=== PATIENT | female | born 1950 | race Caucasian/White ===

== ENCOUNTER 2017-09-09 21:22 | Inpatient (IN) | payer MEDICARE, MEDICAID ==
[~2017-09-09] VITALS: Ht 175.3 cm; Wt 87.3 kg
[2017-09-09 21:40] LABS: BASOPHILS # (AUTO) 0.03 K/uL (0.00-0.20); BASOPHILS % (AUTO) 0.3 % (0.0-2.0); EOSINOPHILS # (AUTO) 0.05 K/uL (0.00-0.70); EOSINOPHILS % (AUTO) 0.47 % (1.0-6.0); HEMATOCRIT 42.7 % (36-46); HEMOGLOBIN 14.3 g/dL (12.0-16.0); LYMPHOCYTES # (AUTO) 1.9 K/uL (1.0-4.8); LYMPHOCYTES % (AUTO) 19.7 % (22.0-44.0); MEAN CORPUSCULAR HGB CONC 33.4 G/dL (31.0-37.0); MEAN CORPUSCULAR VOLUME 87 fL (80-100); MONOCYTES # (AUTO) 0.3 K/uL (0.1-1.0); MONOCYTES % (AUTO) 3.2 % (2.0-9.0); NEUTROPHILS # (AUTO) 7.5 K/uL (1.8-7.7); NEUTROPHILS % (AUTO) 76.4 % (40.0-70.0); PLATELET COUNT (AUTO) 260 K/uL (150-450); RED BLOOD CELL COUNT(AUTO) 4.91 MIL/uL (4.00-5.20); RED CELL DISTRIBUTION WIDTH 13.7 % (11.5-14.5); WHITE BLOOD COUNT (AUTO) 9.8 K/uL (4.5-11.0)
[2017-09-09 21:49] LABS: ANION GAP 12 mmol/L (8-16); CALCIUM, TOTAL 9.7 mg/dL (8.8-10.5); CARBON DIOXIDE 25 mmol/L (22-29); CHLORIDE 104 mmol/L (98-107); CREATININE 0.97 mg/dL (0.60-1.30); GLOMERULAR FILTR. RATE CALC 57 mL/min (>60); POTASSIUM 4.1 mmol/L (3.5-5.1); SODIUM SERUM 141 mmol/L (136-145); UREA NITROGEN, BLOOD 14 mg/dL (7-18)
[2017-09-09 21:55] LABS: ALANINE AMINOTRANSFERASE 46 U/L (12-78); ALBUMIN 3.6 g/dL (3.4-5.0); ASPARTATE AMINOTRANSFERASE 26 U/L (15-37); BILIRUBIN,TOTAL 0.4 mg/dL (0.1-1.0); TOTAL PROTEIN, SERUM 7.5 g/dL (6.4-8.2)
[2017-09-10 00:56] LABS: APPEARANCE,URINE CLEAR (CLEAR); GLUCOSE, URINE (UA) NEGATIVE (NEGATIVE); KETONES,URINE NEGATIVE (NEGATIVE); LEUKOCYTE ESTERASE ,URINE TRACE (NEGATIVE); OCCULT BLOOD,URINE NEGATIVE (NEGATIVE); PROTEIN,URINE NEGATIVE (NEGATIVE)
[2017-09-10 00:57] LABS: ADD UA MICROSCOPIC YES
[2017-09-10 01:14] LABS: RBC,URINE 0-2 /HPF (0-2); SQUAMOUS EPITHELIAL CELL,UR Rare /LPF (None Seen)
[2017-09-10 01:35] VITALS: BP 149/97
[2017-09-10] MEDS ORDERED: LORazepam 2 MG TABLET PO PRN (03:30)
[2017-09-10] MEDS ORDERED: HALOPERIDOL 5 MG TABLET PO PRN (03:30)
[2017-09-10] MEDS ORDERED: ZOLPIDEM TARTRATE 10 MG TABLET PO PRN (03:30)
[2017-09-10 09:30] VITALS: BP 135/82
[2017-09-10] MEDS ORDERED: MAGNESIUM HYDROXIDE SUSPENSION 30 ML UDCUP PO PRN (12:30)
[2017-09-10] MEDS ORDERED: BACITRACIN 28.4 GM OINTMENT TP PRN (12:30)
[2017-09-10] MEDS ORDERED: PETROLATUM,WHITE 71 GM JELLY TP PRN (12:30)
[2017-09-10] MEDS ORDERED: LOPERAMIDE HCL 2 MG CAPSULE PO PRN (12:30)
[2017-09-10] MEDS ORDERED: MAG HYDROX/AL HYDROX/SIMETH ES 30 ML SUSPENSION UDCUP PO PRN (12:30)
[2017-09-10] MEDS ORDERED: CloNIDine HCL 0.1 MG TABLET PO PRN (12:30)
[2017-09-10] MEDS ORDERED: ALBUTEROL SULFATE HFA 90 MCG/PUFF 8 GM INHALER IH PRN (12:30)
[2017-09-10] MEDS ORDERED: ACETAMINOPHEN 325 MG TABLET PO PRN (12:30)
[2017-09-10] MEDS ORDERED: ONDANSETRON HCL 4 MG TABLET PO PRN (12:30)
[2017-09-10] MEDS ORDERED: IBUPROFEN 600 MG TABLET PO PRN (12:30)
[2017-09-10] MEDS ORDERED: BENZOCAINE/MENTHOL LOZENGE [8 LOZENGES/PACKET] MM PRN (12:45)
[2017-09-10 16:30] VITALS: BP 107/65
[2017-09-11 07:33] LABS: HEMOGLOBIN A1C 5.7 % (4.5-6.2)
[2017-09-11 07:43] LABS: CHOL/HDL RATIO 3.9 (3.9-5.7); THYROID STIMULATING HORMONE 3.83 uIU/mL (0.36-3.74)
[2017-09-11] MEDS: LISINOPRIL 5 MG TABLET PO SCH (09:00)
[2017-09-11 10:04] VITALS: BP 100/60
[2017-09-11 16:52] VITALS: BP 108/70
[2017-09-12] MEDS: LEVOTHYROXINE SODIUM 25 MCG TABLET PO SCH (07:12)
[2017-09-12 08:36] VITALS: BP 111/66
[2017-09-12] MEDS: LISINOPRIL 5 MG TABLET PO SCH (09:00)
[2017-09-12] MEDS: CHOLECALCIFEROL (VIT D3) 1,000 UNITS TABLET PO SCH (09:55)
[2017-09-12] MEDS: ESCITALOPRAM OXALATE 10 MG TABLET PO SCH (09:55)
[2017-09-12] MEDS: RisperiDONE 0.5 MG TABLET PO SCH (09:55)
[2017-09-12 17:44] VITALS: BP 105/66
[2017-09-13] MEDS: LEVOTHYROXINE SODIUM 25 MCG TABLET PO SCH (06:52)
[2017-09-13 08:23] VITALS: BP 104/60
[2017-09-13] MEDS: LISINOPRIL 5 MG TABLET PO SCH (10:24)
[2017-09-13] MEDS: CHOLECALCIFEROL (VIT D3) 1,000 UNITS TABLET PO SCH (10:24)
[2017-09-13] MEDS: RisperiDONE 0.5 MG TABLET PO SCH (10:24)
[2017-09-13] MEDS: ESCITALOPRAM OXALATE 10 MG TABLET PO SCH (10:25)
[2017-09-13 18:27] VITALS: BP 99/58
[2017-09-14] MEDS: LEVOTHYROXINE SODIUM 25 MCG TABLET PO SCH (06:25)
[2017-09-14] MEDS: LISINOPRIL 5 MG TABLET PO SCH (09:17)
[2017-09-14] MEDS: ESCITALOPRAM OXALATE 10 MG TABLET PO SCH (09:17)
[2017-09-14] MEDS: RisperiDONE 0.5 MG TABLET PO SCH (09:17)
[2017-09-14] MEDS: CHOLECALCIFEROL (VIT D3) 1,000 UNITS TABLET PO SCH (09:18)
[2017-09-14 09:39] VITALS: BP 110/64
[2017-09-14 19:52] VITALS: BP 103/69
[2017-09-15] MEDS: LEVOTHYROXINE SODIUM 25 MCG TABLET PO SCH (06:48)
[2017-09-15] MEDS: ESCITALOPRAM OXALATE 10 MG TABLET PO SCH (09:27)
[2017-09-15] MEDS: LISINOPRIL 5 MG TABLET PO SCH (09:27)
[2017-09-15] MEDS: RisperiDONE 0.5 MG TABLET PO SCH (09:27)
[2017-09-15] MEDS: CHOLECALCIFEROL (VIT D3) 1,000 UNITS TABLET PO SCH (09:27)
[2017-09-15 09:35] VITALS: BP 95/65
[2017-09-15 17:21] VITALS: BP 105/65
[2017-09-15] MEDS: NYSTATIN 15 GM POWDER BOTTLE TP SCH (18:01)
[2017-09-15] MEDS: RisperiDONE 1 MG TABLET PO SCH (21:00)
[2017-09-16] MEDS: LEVOTHYROXINE SODIUM 25 MCG TABLET PO SCH (06:58)
[2017-09-16 08:30] VITALS: BP 100/70
[2017-09-16] MEDS: ESCITALOPRAM OXALATE 10 MG TABLET PO SCH (09:09)
[2017-09-16] MEDS: LISINOPRIL 5 MG TABLET PO SCH (09:09)
[2017-09-16] MEDS: CHOLECALCIFEROL (VIT D3) 1,000 UNITS TABLET PO SCH (09:09)
[2017-09-16] MEDS: NYSTATIN 15 GM POWDER BOTTLE TP SCH ×2 (09:10→17:53)
[2017-09-16 17:12] VITALS: BP_SYST 122; BP_SYST 95; BP_DIAS 63; BP_DIAS 75
[2017-09-16] MEDS: RisperiDONE 1 MG TABLET PO SCH (21:54)
[2017-09-17] MEDS: LEVOTHYROXINE SODIUM 25 MCG TABLET PO SCH (06:41)
[2017-09-17] MEDS: LISINOPRIL 5 MG TABLET PO SCH (09:00)
[2017-09-17] MEDS: NYSTATIN 15 GM POWDER BOTTLE TP SCH ×2 (09:00→18:07)
[2017-09-17 10:10] VITALS: BP 95/69
[2017-09-17] MEDS: ESCITALOPRAM OXALATE 10 MG TABLET PO SCH (10:15)
[2017-09-17] MEDS: CHOLECALCIFEROL (VIT D3) 1,000 UNITS TABLET PO SCH (10:16)
[2017-09-17 16:30] VITALS: BP 98/63
[2017-09-17] MEDS: RisperiDONE 1 MG TABLET PO SCH (20:31)
[2017-09-18] MEDS: LEVOTHYROXINE SODIUM 25 MCG TABLET PO SCH (06:02)
[2017-09-18] MEDS: CHOLECALCIFEROL (VIT D3) 1,000 UNITS TABLET PO SCH (09:31)
[2017-09-18] MEDS: ESCITALOPRAM OXALATE 10 MG TABLET PO SCH (09:31)
[2017-09-18] MEDS: NYSTATIN 15 GM POWDER BOTTLE TP SCH ×2 (09:32→17:33)
[2017-09-18] MEDS ORDERED: ESCI10TA PO (14:31)
[2017-09-18] MEDS ORDERED: RISP1 PO (14:31)
== END 2017-09-18 18:00 | disposition home or self-care (01) | DRG 885 ==
LOC: EMS 21:24 → EDBD 09-10 00:51 → 3EI 09-10 00:51
DX: F23 Brief psychotic disorder (principal); F03.90 Unspecified dementia, unspecified severity, without behavioral disturbance, psychotic disturbance, mood disturbance, and anxiety; F32.9 Major depressive disorder, single episode, unspecified; G47.00 Insomnia, unspecified; I10 Essential (primary) hypertension; K21.9 Gastro-esophageal reflux disease without esophagitis; K59.00 Constipation, unspecified; M19.90 Unspecified osteoarthritis, unspecified site; E03.9 Hypothyroidism, unspecified; E55.9 Vitamin D deficiency, unspecified; R73.9 Hyperglycemia, unspecified; Z91.5 Personal history of self-harm
CPT/HCPCS: 82306; 83036; 84443; 99285; G0480

== ENCOUNTER 2019-08-17 11:20 | Emergency (ER) | payer MEDICARE, OTHER ==
[~2019-08-17] VITALS: Ht 172.7 cm; Wt 97.7 kg
[~2019-08-17 11:20] MED LIST: ESCI10TA PO; RISP1 PO
[2019-08-17 12:21] LABS: EOSINOPHILS % (AUTO) 1.3 % (1.0-6.0); HEMATOCRIT 43.5 % (36-46); HEMOGLOBIN 14.6 g/dL (12.0-16.0); LYMPHOCYTES # (AUTO) 1.4 K/uL (1.0-4.8); LYMPHOCYTES % (AUTO) 25.2 % (22.0-44.0); MEAN CORPUSCULAR HEMOGLOBIN 29.4 pg (26.0-34.0); MEAN CORPUSCULAR HGB CONC 33.6 G/dL (31.0-37.0); MEAN CORPUSCULAR VOLUME 87 fL (80-100); MONOCYTES # (AUTO) 0.4 K/uL (0.1-1.0); MONOCYTES % (AUTO) 7.2 % (2.0-9.0); NEUTROPHILS # (AUTO) 3.5 K/uL (1.8-7.7); NEUTROPHILS % (AUTO) 65.3 % (40.0-70.0); PLATELET COUNT (AUTO) 224 K/uL (150-450); RED BLOOD CELL COUNT(AUTO) 4.97 MIL/uL (4.00-5.20); RED CELL DISTRIBUTION WIDTH 13.6 % (11.5-14.5)
[2019-08-17 12:28] LABS: ANION GAP 7 mmol/L (8-16); CALCIUM, TOTAL 9.3 mg/dL (8.8-10.5); CARBON DIOXIDE 29 mmol/L (22-29); CHLORIDE 104 mmol/L (98-107); CREATININE 0.92 mg/dL (0.60-1.30); GLOMERULAR FILTR. RATE CALC 60 mL/min (>60); GLUCOSE,RANDOM 111 mg/dL (70-110); SODIUM SERUM 140 mmol/L (136-145); UREA NITROGEN, BLOOD 15 mg/dL (7-18)
[2019-08-17 12:43] LABS: ALANINE AMINOTRANSFERASE 24 U/L (12-78); ALBUMIN 3.4 g/dL (3.4-5.0); ALKALINE PHOSPHATASE 84 U/L (46-116); ASPARTATE AMINOTRANSFERASE 16 U/L (15-37); BILIRUBIN,TOTAL 0.8 mg/dL (0.1-1.0); TOTAL PROTEIN, SERUM 7.3 g/dL (6.4-8.2)
[2019-08-17 13:00] LABS: APPEARANCE,URINE CLOUDY (CLEAR); GLUCOSE, URINE (UA) NEGATIVE (NEGATIVE); KETONES,URINE TRACE mg/dL (NEGATIVE); LEUKOCYTE ESTERASE ,URINE MODERATE (NEGATIVE); NITRATE,URINE NEGATIVE (NEGATIVE); OCCULT BLOOD,URINE NEGATIVE (NEGATIVE); PROTEIN,URINE POS 1+ (NEGATIVE)
[2019-08-17 13:01] LABS: BILIRUBIN,URINE PRELIM. POSITIVE (NEGATIVE)
[2019-08-17 13:05] LABS: AMPHET/METH SCREEN,URINE NEGATIVE (NEGATIVE); BARBITURATE SCREEN, URINE NEGATIVE (NEGATIVE); BENZODIAZEPINES SCREEN,URINE NEGATIVE (NEGATIVE); CANNABINOID SCREEN,URINE NEGATIVE (NEGATIVE); COCAINE SCREEN,URINE NEGATIVE (NEGATIVE); METHADONE SCREEN, URINE NEGATIVE (NEGATIVE); OPIATE SCREEN,URINE NEGATIVE (NEGATIVE)
[2019-08-17 13:06] LABS: PHENCYCLIDINE SCREEN,URINE NEGATIVE (NEGATIVE)
[2019-08-17 13:14] LABS: BACTERIA,URINE Few /HPF (None Seen); RBC,URINE 0-2 /HPF (0-2); SQUAMOUS EPITHELIAL CELL,UR Moderate /LPF (None Seen); WBC,URINE 26-50 /HPF (0-5)
[2019-08-17 14:19] VITALS: BP 111/73
== END 2019-08-17 15:34 | disposition home or self-care (01) ==
LOC: EMS 11:21
DX: N39.0 Urinary tract infection, site not specified (principal); F32.9 Major depressive disorder, single episode, unspecified; Z60.9 Problem related to social environment, unspecified
CPT/HCPCS: 36415; 80053; 80307; 81001; 84443; 85025; 87086; 93005; 99284; G0480

== ENCOUNTER 2021-05-15 16:19 | Emergency (ER) | payer MEDICARE, OTHER ==
[~2021-05-15] VITALS: Ht 162.6 cm; Wt 100.0 kg
[~2021-05-15 16:19] MED LIST changes: -ESCI10TA PO; +NITR0.4T50 SL; -RISP1 PO; +RIVA10 PO
== END 2021-05-15 16:44 | disposition home or self-care (01) ==
LOC: EMS 16:33
DX: M79.606 Pain in leg, unspecified (principal); F32.9 Major depressive disorder, single episode, unspecified; Z59.0 Homelessness
CPT/HCPCS: 99283; Z7502

== ENCOUNTER 2021-06-13 21:41 | Emergency (ER) | payer MEDICARE, OTHER ==
[~2021-06-13] VITALS: Ht 160 cm; Wt 77.3 kg
[~2021-06-13 21:41] MED LIST changes: -RIVA10 PO; +RIVA10TA PO
[2021-06-14 03:14] LABS: ALANINE AMINOTRANSFERASE 24 U/L (12-78); ALBUMIN 2.7 g/dL (3.4-5.0); ALKALINE PHOSPHATASE 86 U/L (46-116); ANION GAP 6 mmol/L (8-16); ASPARTATE AMINOTRANSFERASE 16 U/L (15-37); BILIRUBIN,TOTAL 0.4 mg/dL (0.1-1.0); CALCIUM, TOTAL 8.7 mg/dL (8.8-10.5); CARBON DIOXIDE 28 mmol/L (22-29); CHLORIDE 111 mmol/L (98-107); CREATININE 0.85 mg/dL (0.60-1.30); GLUCOSE,RANDOM 93 mg/dL (70-110); POTASSIUM 3.7 mmol/L (3.5-5.1); SODIUM SERUM 145 mmol/L (136-145); TOTAL PROTEIN, SERUM 6.3 g/dL (6.4-8.2)
[2021-06-14 03:19] LABS: GLOMERULAR FILTR. RATE CALC > 60 mL/min (>60)
[2021-06-14 03:20] LABS: BASOPHILS % (AUTO) 1.1 % (0.0-2.0); EOSINOPHILS % (AUTO) 3.9 % (1.0-6.0); HEMATOCRIT 36.3 % (36-46); HEMOGLOBIN 11.8 g/dL (12.0-16.0); LYMPHOCYTES # (AUTO) 1.5 K/uL (1.0-4.8); LYMPHOCYTES % (AUTO) 26.9 % (22.0-44.0); MEAN CORPUSCULAR HEMOGLOBIN 28.9 pg (26.0-34.0); MEAN CORPUSCULAR HGB CONC 32.6 G/dL (31.0-37.0); MEAN CORPUSCULAR VOLUME 89 fL (80-100); MONOCYTES # (AUTO) 0.5 K/uL (0.1-1.0); MONOCYTES % (AUTO) 8.5 % (2.0-9.0); NEUTROPHILS # (AUTO) 3.2 K/uL (1.8-7.7); NEUTROPHILS % (AUTO) 59.6 % (40.0-70.0); PLATELET COUNT (AUTO) 226 K/uL (150-450); RED CELL DISTRIBUTION WIDTH 14.1 % (11.5-14.5)
[2021-06-14 03:23] LABS: UREA NITROGEN, BLOOD 13 mg/dL (7-18)
[2021-06-14 03:28] LABS: COVID AG,FIA SOURCE NASOPHARYNGEAL
[2021-06-14 08:37] VITALS: BP 109/44
== END 2021-06-14 11:27 | disposition home or self-care (01) ==
LOC: EMS 21:43
DX: F43.10 Post-traumatic stress disorder, unspecified (principal); F41.9 Anxiety disorder, unspecified; R07.9 Chest pain, unspecified; Z20.822 Contact with and (suspected) exposure to COVID-19; Z59.0 Homelessness
CPT/HCPCS: 36415; 80053; 85025; 87426; 99283; G0480

== ENCOUNTER 2021-07-06 14:52 | Inpatient (IN) | payer MEDICARE, MEDICAID ==
[~2021-07-06] VITALS: Ht 172.7 cm; Wt 79.8 kg
[2021-07-06] MEDS ORDERED: DiphenhydrAMINE HCL 50 MG/ML VIAL IM ONE (16:30)
[2021-07-06] MEDS ORDERED: HALOPERIDOL LACTATE 5 MG/ML VIAL IM ONE (16:30)
[2021-07-06] MEDS ORDERED: LORazepam 2 MG/ML VIAL IM ONE (16:30)
[2021-07-06 17:28] LABS: COVID AG,FIA SOURCE NASOPHARYNGEAL
[2021-07-06 18:53] LABS: BASOPHILS % (AUTO) 0.6 % (0.0-2.0); EOSINOPHILS % (AUTO) 0.2 % (1.0-6.0); HEMATOCRIT 39.5 % (36-46); HEMOGLOBIN 12.9 g/dL (12.0-16.0); LYMPHOCYTES % (AUTO) 13.9 % (22.0-44.0); MEAN CORPUSCULAR HEMOGLOBIN 28.6 pg (26.0-34.0); MEAN CORPUSCULAR HGB CONC 32.7 G/dL (31.0-37.0); MEAN CORPUSCULAR VOLUME 87 fL (80-100); MONOCYTES # (AUTO) 0.4 K/uL (0.1-1.0); MONOCYTES % (AUTO) 5.1 % (2.0-9.0); NEUTROPHILS % (AUTO) 80.2 % (40.0-70.0); PLATELET COUNT (AUTO) 289 K/uL (150-450); RED BLOOD CELL COUNT(AUTO) 4.52 MIL/uL (4.00-5.20); RED CELL DISTRIBUTION WIDTH 14.3 % (11.5-14.5)
[2021-07-06 19:04] LABS: ANION GAP 7 mmol/L (8-16); CALCIUM, TOTAL 9.4 mg/dL (8.8-10.5); CARBON DIOXIDE 28 mmol/L (22-29); CHLORIDE 108 mmol/L (98-107); GLOMERULAR FILTR. RATE CALC 40 mL/min (>60); GLUCOSE,RANDOM 92 mg/dL (70-110); SODIUM SERUM 143 mmol/L (136-145); UREA NITROGEN, BLOOD 18 mg/dL (7-18)
[2021-07-06 19:06] LABS: PROTHROMBIN TIME 11.1 SEC (9.4-11.6)
[2021-07-06 19:10] LABS: ALANINE AMINOTRANSFERASE 46 U/L (12-78); ALBUMIN 3.4 g/dL (3.4-5.0); ALKALINE PHOSPHATASE 140 U/L (46-116); ASPARTATE AMINOTRANSFERASE 23 U/L (15-37); BILIRUBIN,TOTAL 0.6 mg/dL (0.1-1.0); TOTAL PROTEIN, SERUM 7.4 g/dL (6.4-8.2)
[2021-07-06] MEDS ORDERED: LORazepam 2 MG TABLET PO PRN (20:00)
[2021-07-06] MEDS ORDERED: ZOLPIDEM TARTRATE 10 MG TABLET PO PRN (20:00)
[2021-07-06 21:15] VITALS: BP 95/49
[2021-07-06] MEDS ORDERED: NICOTINE 14 MG/24 HOUR PATCH TD PRN (22:45)
[2021-07-06] MEDS ORDERED: DOCUSATE SODIUM 100 MG CAPSULE PO PRN (22:45)
[2021-07-06] MEDS ORDERED: ALBUTEROL SULFATE HFA 90 MCG/PUFF 8 GM INHALER IH PRN (22:45)
[2021-07-06] MEDS ORDERED: CloNIDine HCL 0.1 MG TABLET PO PRN (22:45)
[2021-07-06] MEDS ORDERED: PETROLATUM,WHITE 28 GM JELLY TP PRN (22:45)
[2021-07-06] MEDS ORDERED: IBUPROFEN 400 MG TABLET PO PRN (22:45)
[2021-07-06] MEDS ORDERED: LOPERAMIDE HCL 2 MG CAPSULE PO PRN (22:45)
[2021-07-06] MEDS ORDERED: MAGNESIUM HYDROXIDE SUSPENSION 30 ML UDCUP PO PRN (22:45)
[2021-07-06] MEDS ORDERED: MAG HYDROX/AL HYDROX/SIMETH ES 30 ML SUSPENSION UDCUP PO PRN (22:45)
[2021-07-06] MEDS ORDERED: ONDANSETRON HCL 4 MG TABLET PO PRN (22:45)
[2021-07-07 08:00] VITALS: BP 121/75
[2021-07-07] MEDS: QUEtiapine FUMARATE 25 MG TABLET PO SCH (09:45)
[2021-07-07 16:26] VITALS: BP 97/55
[2021-07-07] MEDS: RIVAROXABAN 20 MG TABLET PO SCH (16:45)
[2021-07-07] MEDS ORDERED: LORazepam 2 MG/ML VIAL ONE (17:26)
[2021-07-07] MEDS ORDERED: HALOPERIDOL LACTATE 5 MG/ML VIAL ONE (17:27)
[2021-07-07] MEDS ORDERED: DiphenhydrAMINE HCL 50 MG/ML VIAL ONE (17:27)
[2021-07-07] MEDS ORDERED: HALOPERIDOL LACTATE 5 MG/ML VIAL IM ONE (18:15)
[2021-07-07] MEDS ORDERED: DiphenhydrAMINE HCL 50 MG/ML VIAL IM ONE (18:15)
[2021-07-07] MEDS ORDERED: LORazepam 2 MG/ML VIAL IM ONE (18:15)
[2021-07-07] MEDS: QUEtiapine FUMARATE 100 MG TABLET PO SCH (20:28)
[2021-07-08] MEDS: QUEtiapine FUMARATE 25 MG TABLET PO SCH (09:00)
[2021-07-08 10:04] VITALS: BP 111/58
[2021-07-08] MEDS ORDERED: DiphenhydrAMINE HCL 50 MG/ML VIAL IM ONE (16:30)
[2021-07-08] MEDS ORDERED: HALOPERIDOL LACTATE 5 MG/ML VIAL IM ONE (16:30)
[2021-07-08] MEDS ORDERED: LORazepam 2 MG/ML VIAL IM ONE (16:30)
[2021-07-08] MEDS: RIVAROXABAN 20 MG TABLET PO SCH (16:59)
[2021-07-08] MEDS: QUEtiapine FUMARATE 100 MG TABLET PO SCH (21:00)
[2021-07-09 02:24] VITALS: BP 101/58
[2021-07-09 08:45] VITALS: BP 113/81
[2021-07-09] MEDS: QUEtiapine FUMARATE 25 MG TABLET PO SCH ×2 (09:00→09:46)
[2021-07-09 16:00] VITALS: BP 120/74
[2021-07-09] MEDS: RIVAROXABAN 20 MG TABLET PO SCH (17:05)
[2021-07-09] MEDS: QUEtiapine FUMARATE 100 MG TABLET PO SCH (20:36)
[2021-07-10] VITALS: BP 122/75
[2021-07-10 05:06] VITALS: BP 115/65
[2021-07-10] MEDS: QUEtiapine FUMARATE 25 MG TABLET PO SCH (09:00)
[2021-07-10 09:11] VITALS: BP 113/74
[2021-07-10 16:03] VITALS: BP 118/69
[2021-07-10] MEDS: HALOPERIDOL 5 MG TABLET PO PRN (17:44)
[2021-07-10] MEDS: RIVAROXABAN 20 MG TABLET PO SCH (17:44)
[2021-07-10] MEDS: QUEtiapine FUMARATE 100 MG TABLET PO SCH (21:06)
[2021-07-11 01:47] VITALS: BP 116/80
[2021-07-11 03:40] VITALS: BP 119/69
[2021-07-11] MEDS: GuaiFENesin/D-METHORPHAN [SUGAR-FREE] 200-20MG/10 ML SYRUP UDCUP PO PRN (03:48)
[2021-07-11] MEDS: QUEtiapine FUMARATE 25 MG TABLET PO SCH (08:24)
[2021-07-11 08:39] VITALS: BP 116/70
[2021-07-11] MEDS: ACETAMINOPHEN 325 MG TABLET PO PRN (09:55)
[2021-07-11 16:03] VITALS: BP 120/75
[2021-07-11] MEDS: RIVAROXABAN 20 MG TABLET PO SCH (17:09)
[2021-07-11] MEDS: HALOPERIDOL 5 MG TABLET PO PRN (17:09)
[2021-07-11] MEDS: QUEtiapine FUMARATE 100 MG TABLET PO SCH (20:37)
[2021-07-12 04:00] VITALS: BP 117/80
[2021-07-12] MEDS: QUEtiapine FUMARATE 25 MG TABLET PO SCH (09:00)
[2021-07-12 11:01] VITALS: BP 151/83
[2021-07-12] MEDS: HALOPERIDOL 5 MG TABLET PO PRN ×2 (17:45→18:44)
[2021-07-12] MEDS: RIVAROXABAN 20 MG TABLET PO SCH ×2 (17:45→17:47)
[2021-07-12] MEDS ORDERED: LORazepam 2 MG/ML VIAL ONE (18:19)
[2021-07-12] MEDS ORDERED: DiphenhydrAMINE HCL 50 MG/ML VIAL ONE (18:20)
[2021-07-12] MEDS ORDERED: HALOPERIDOL LACTATE 5 MG/ML VIAL ONE (18:20)
[2021-07-12] MEDS: QUEtiapine FUMARATE 100 MG TABLET PO SCH (20:49)
[2021-07-12] MEDS ORDERED: LORazepam 2 MG/ML VIAL IVP ONE (21:15)
[2021-07-12] MEDS ORDERED: HALOPERIDOL LACTATE 5 MG/ML VIAL IM ONE (21:15)
[2021-07-12] MEDS ORDERED: DiphenhydrAMINE HCL 50 MG/ML VIAL IM ONE (21:15)
[2021-07-13 03:45] VITALS: BP 116/79
[2021-07-13] MEDS: QUEtiapine FUMARATE 25 MG TABLET PO SCH (09:00)
[2021-07-13 09:11] VITALS: BP 121/81
[2021-07-13 13:22] LABS: CREATININE 0.95 mg/dL (0.60-1.30); POTASSIUM 4.1 mmol/L (3.5-5.1)
[2021-07-13 16:03] VITALS: BP 125/69
[2021-07-13] MEDS: QUEtiapine FUMARATE 100 MG TABLET PO SCH (20:28)
[2021-07-13] MEDS: BISMUTH SUBSALICYLATE 524 MG/30 ML SUSPENSION UDCUP PO PRN (20:31)
[2021-07-14] VITALS: BP 95/63
[2021-07-14] MEDS: ACETAMINOPHEN 325 MG TABLET PO PRN (03:42)
[2021-07-14 08:01] VITALS: BP 95/51
[2021-07-14] MEDS: OMEPRAZOLE 20 MG CAPSULE PO SCH (09:00)
[2021-07-14] MEDS: QUEtiapine FUMARATE 25 MG TABLET PO SCH (09:00)
[2021-07-14] MEDS: RIVAROXABAN 20 MG TABLET PO SCH (16:06)
[2021-07-14] MEDS: BISMUTH SUBSALICYLATE 524 MG/30 ML SUSPENSION UDCUP PO PRN (16:06)
[2021-07-14] MEDS: QUEtiapine FUMARATE 100 MG TABLET PO SCH (20:01)
[2021-07-15] MEDS: QUEtiapine FUMARATE 25 MG TABLET PO SCH (09:00)
[2021-07-15] MEDS: OMEPRAZOLE 20 MG CAPSULE PO SCH (09:00)
[2021-07-15 10:41] VITALS: BP 112/59
[2021-07-15 16:34] VITALS: BP 116/79
[2021-07-15] MEDS: RIVAROXABAN 20 MG TABLET PO SCH (17:09)
[2021-07-15] MEDS: HALOPERIDOL 5 MG TABLET PO PRN (17:12)
[2021-07-15] MEDS: QUEtiapine FUMARATE 100 MG TABLET PO SCH (20:28)
[2021-07-15] MEDS: GuaiFENesin/D-METHORPHAN [SUGAR-FREE] 200-20MG/10 ML SYRUP UDCUP PO PRN (22:46)
[2021-07-16 08:30] VITALS: BP 128/82
[2021-07-16] MEDS: QUEtiapine FUMARATE 25 MG TABLET PO SCH (09:00)
[2021-07-16] MEDS: OMEPRAZOLE 20 MG CAPSULE PO SCH (09:00)
[2021-07-16] MEDS: RIVAROXABAN 20 MG TABLET PO SCH (17:17)
[2021-07-16] MEDS: QUEtiapine FUMARATE 100 MG TABLET PO SCH ×2 (20:05→21:00)
[2021-07-17 01:00] VITALS: BP 116/70
[2021-07-17] MEDS: QUEtiapine FUMARATE 25 MG TABLET PO SCH (09:00)
[2021-07-17] MEDS: OMEPRAZOLE 20 MG CAPSULE PO SCH (09:00)
[2021-07-17 13:16] LABS: COVID AG,FIA SOURCE NASAL SWAB
[2021-07-17 16:26] VITALS: BP 147/74
[2021-07-17] MEDS: RIVAROXABAN 20 MG TABLET PO SCH (17:02)
[2021-07-17] MEDS: QUEtiapine FUMARATE 200 MG TABLET PO SCH (20:58)
[2021-07-17] MEDS: CARBAMIDE PEROXIDE 6.5% 15 ML OTIC SOLUTION AU SCH (21:48)
[2021-07-18 01:00] VITALS: BP 132/80
[2021-07-18 08:34] VITALS: BP 138/82
[2021-07-18] MEDS: QUEtiapine FUMARATE 25 MG TABLET PO SCH (09:00)
[2021-07-18] MEDS: OMEPRAZOLE 20 MG CAPSULE PO SCH (09:00)
[2021-07-18] MEDS: ASCORBIC ACID 500 MG TABLET PO SCH (11:27)
[2021-07-18] MEDS: CARBAMIDE PEROXIDE 6.5% 15 ML OTIC SOLUTION AU SCH (11:27)
[2021-07-18 16:08] VITALS: BP 118/82
[2021-07-18] MEDS: RIVAROXABAN 20 MG TABLET PO SCH (16:37)
[2021-07-18] MEDS: QUEtiapine FUMARATE 200 MG TABLET PO SCH (20:10)
[2021-07-19 01:04] VITALS: BP 109/66
[2021-07-19 08:01] VITALS: BP 123/74
[2021-07-19] MEDS: QUEtiapine FUMARATE 25 MG TABLET PO SCH (09:00)
[2021-07-19] MEDS: OMEPRAZOLE 20 MG CAPSULE PO SCH (09:00)
[2021-07-19] MEDS: ASCORBIC ACID 500 MG TABLET PO SCH (09:00)
[2021-07-19] MEDS: CARBAMIDE PEROXIDE 6.5% 15 ML OTIC SOLUTION AU SCH (10:45)
[2021-07-19 16:00] VITALS: BP 133/72
[2021-07-19 16:01] VITALS: BP 133/72
[2021-07-19] MEDS: RIVAROXABAN 20 MG TABLET PO SCH (16:47)
[2021-07-19] MEDS: QUEtiapine FUMARATE 200 MG TABLET PO SCH (20:34)
[2021-07-20 02:38] VITALS: BP 115/70
[2021-07-20 08:54] VITALS: BP 108/58
[2021-07-20] MEDS: OMEPRAZOLE 20 MG CAPSULE PO SCH (09:00)
[2021-07-20] MEDS: QUEtiapine FUMARATE 25 MG TABLET PO SCH (09:00)
[2021-07-20] MEDS: ASCORBIC ACID 500 MG TABLET PO SCH (09:59)
[2021-07-20] MEDS: CARBAMIDE PEROXIDE 6.5% 15 ML OTIC SOLUTION AU SCH (10:00)
[2021-07-20 16:01] VITALS: BP 108/74
[2021-07-20] MEDS: HALOPERIDOL 5 MG TABLET PO PRN (17:03)
[2021-07-20] MEDS: RIVAROXABAN 20 MG TABLET PO SCH (17:03)
[2021-07-20] MEDS: QUEtiapine FUMARATE 200 MG TABLET PO SCH (21:44)
[2021-07-21] VITALS: BP 119/70
[2021-07-21] MEDS: BISMUTH SUBSALICYLATE 524 MG/30 ML SUSPENSION UDCUP PO PRN (05:51)
[2021-07-21] MEDS: QUEtiapine FUMARATE 25 MG TABLET PO SCH (09:00)
[2021-07-21] MEDS: OMEPRAZOLE 20 MG CAPSULE PO SCH (09:00)
[2021-07-21] MEDS: ASCORBIC ACID 500 MG TABLET PO SCH (09:52)
[2021-07-21] MEDS: MULTIVITAMINS WITH MINERALS, THERAPEUTIC TABLET PO SCH (09:52)
[2021-07-21] MEDS: CYANOCOBALAMIN 500 MCG TABLET PO SCH (09:54)
[2021-07-21] MEDS: CARBAMIDE PEROXIDE 6.5% 15 ML OTIC SOLUTION AU SCH (09:55)
[2021-07-21 16:25] VITALS: BP 109/65
[2021-07-21] MEDS: RIVAROXABAN 20 MG TABLET PO SCH (17:30)
[2021-07-21] MEDS: QUEtiapine FUMARATE 200 MG TABLET PO SCH (21:00)
[2021-07-22 02:46] VITALS: BP 129/61
[2021-07-22] MEDS: MULTIVITAMINS WITH MINERALS, THERAPEUTIC TABLET PO SCH (08:51)
[2021-07-22] MEDS: CYANOCOBALAMIN 500 MCG TABLET PO SCH (08:51)
[2021-07-22] MEDS: ASCORBIC ACID 500 MG TABLET PO SCH (08:51)
[2021-07-22] MEDS: QUEtiapine FUMARATE 25 MG TABLET PO SCH (08:53)
[2021-07-22] MEDS: CARBAMIDE PEROXIDE 6.5% 15 ML OTIC SOLUTION AU SCH (08:53)
[2021-07-22] MEDS: OMEPRAZOLE 20 MG CAPSULE PO SCH (08:53)
[2021-07-22 12:47] VITALS: BP 147/79
[2021-07-22] MEDS: RIVAROXABAN 20 MG TABLET PO SCH (16:47)
[2021-07-22] MEDS ORDERED: HALOPERIDOL LACTATE 5 MG/ML VIAL IM ONE ×2 (17:45→20:00)
[2021-07-22] MEDS ORDERED: DiphenhydrAMINE HCL 50 MG/ML VIAL IM ONE ×2 (17:45→20:00)
[2021-07-22] MEDS ORDERED: LORazepam 2 MG/ML VIAL IM ONE ×2 (17:45→20:00)
[2021-07-22] MEDS ORDERED: DiphenhydrAMINE HCL 50 MG/ML VIAL ONE (17:49)
[2021-07-22] MEDS ORDERED: LORazepam 2 MG/ML VIAL ONE (17:49)
[2021-07-22] MEDS ORDERED: HALOPERIDOL LACTATE 5 MG/ML VIAL ONE (17:49)
[2021-07-22] MEDS: QUEtiapine FUMARATE 200 MG TABLET PO SCH (20:47)
[2021-07-23] MEDS: CYANOCOBALAMIN 500 MCG TABLET PO SCH ×2 (09:00→10:24)
[2021-07-23] MEDS: OMEPRAZOLE 20 MG CAPSULE PO SCH (09:00)
[2021-07-23] MEDS: CARBAMIDE PEROXIDE 6.5% 15 ML OTIC SOLUTION AU SCH ×2 (09:00→10:20)
[2021-07-23] MEDS: QUEtiapine FUMARATE 25 MG TABLET PO SCH (09:00)
[2021-07-23] MEDS: MULTIVITAMINS WITH MINERALS, THERAPEUTIC TABLET PO SCH (10:19)
[2021-07-23] MEDS: ASCORBIC ACID 500 MG TABLET PO SCH (10:25)
[2021-07-23] MEDS: RIVAROXABAN 20 MG TABLET PO SCH (17:30)
[2021-07-23] MEDS: QUEtiapine FUMARATE 200 MG TABLET PO SCH (21:00)
[2021-07-24 08:45] VITALS: BP 133/68
[2021-07-24] MEDS: QUEtiapine FUMARATE 25 MG TABLET PO SCH (09:00)
[2021-07-24] MEDS: ASCORBIC ACID 500 MG TABLET PO SCH (09:00)
[2021-07-24] MEDS: OMEPRAZOLE 20 MG CAPSULE PO SCH (09:00)
[2021-07-24] MEDS: MULTIVITAMINS WITH MINERALS, THERAPEUTIC TABLET PO SCH (09:00)
[2021-07-24] MEDS: CYANOCOBALAMIN 500 MCG TABLET PO SCH (09:00)
[2021-07-24] MEDS: CARBAMIDE PEROXIDE 6.5% 15 ML OTIC SOLUTION AU SCH (09:00)
[2021-07-24] MEDS: RIVAROXABAN 20 MG TABLET PO SCH (16:22)
[2021-07-24 17:01] VITALS: BP 127/61
[2021-07-24] MEDS: QUEtiapine FUMARATE 200 MG TABLET PO SCH (20:27)
[2021-07-25 08:59] VITALS: BP 136/76
[2021-07-25] MEDS: OMEPRAZOLE 20 MG CAPSULE PO SCH (09:00)
[2021-07-25] MEDS: MULTIVITAMINS WITH MINERALS, THERAPEUTIC TABLET PO SCH (09:00)
[2021-07-25] MEDS: CARBAMIDE PEROXIDE 6.5% 15 ML OTIC SOLUTION AU SCH (09:00)
[2021-07-25] MEDS: QUEtiapine FUMARATE 25 MG TABLET PO SCH (09:00)
[2021-07-25] MEDS: CYANOCOBALAMIN 500 MCG TABLET PO SCH (09:00)
[2021-07-25] MEDS: ASCORBIC ACID 500 MG TABLET PO SCH (09:00)
[2021-07-25 16:20] VITALS: BP 132/68
[2021-07-25] MEDS: RIVAROXABAN 20 MG TABLET PO SCH (17:30)
[2021-07-25] MEDS: QUEtiapine FUMARATE 200 MG TABLET PO SCH (21:00)
[2021-07-26] MEDS: BISMUTH SUBSALICYLATE 524 MG/30 ML SUSPENSION UDCUP PO PRN (03:24)
[2021-07-26] MEDS: OMEPRAZOLE 20 MG CAPSULE PO SCH (09:00)
[2021-07-26] MEDS: QUEtiapine FUMARATE 25 MG TABLET PO SCH (09:00)
[2021-07-26] MEDS: ASCORBIC ACID 500 MG TABLET PO SCH (10:29)
[2021-07-26] MEDS: MULTIVITAMINS WITH MINERALS, THERAPEUTIC TABLET PO SCH (10:29)
[2021-07-26] MEDS: CYANOCOBALAMIN 500 MCG TABLET PO SCH (10:29)
[2021-07-26] MEDS: CARBAMIDE PEROXIDE 6.5% 15 ML OTIC SOLUTION AU SCH (10:30)
[2021-07-26] MEDS: ACETAMINOPHEN 325 MG TABLET PO PRN (10:31)
[2021-07-26 16:00] VITALS: BP 109/68
[2021-07-26] MEDS: RIVAROXABAN 20 MG TABLET PO SCH (17:11)
[2021-07-26] MEDS: QUEtiapine FUMARATE 200 MG TABLET PO SCH (20:12)
[2021-07-27 00:57] VITALS: BP 139/75
[2021-07-27] MEDS: ASCORBIC ACID 500 MG TABLET PO SCH (08:34)
[2021-07-27] MEDS: CYANOCOBALAMIN 500 MCG TABLET PO SCH (08:34)
[2021-07-27] MEDS: MULTIVITAMINS WITH MINERALS, THERAPEUTIC TABLET PO SCH (08:34)
[2021-07-27] MEDS: CARBAMIDE PEROXIDE 6.5% 15 ML OTIC SOLUTION AU SCH (08:41)
[2021-07-27 08:58] VITALS: BP 121/85
[2021-07-27] MEDS: OMEPRAZOLE 20 MG CAPSULE PO SCH (09:00)
[2021-07-27] MEDS: QUEtiapine FUMARATE 25 MG TABLET PO SCH (09:00)
[2021-07-27] MEDS: RIVAROXABAN 20 MG TABLET PO SCH (16:57)
[2021-07-27] MEDS: QUEtiapine FUMARATE 200 MG TABLET PO SCH (20:50)
[2021-07-28 04:18] VITALS: BP 122/68
[2021-07-28] MEDS: OMEPRAZOLE 20 MG CAPSULE PO SCH (08:10)
[2021-07-28] MEDS: MULTIVITAMINS WITH MINERALS, THERAPEUTIC TABLET PO SCH (08:10)
[2021-07-28] MEDS: QUEtiapine FUMARATE 25 MG TABLET PO SCH (08:10)
[2021-07-28] MEDS: CYANOCOBALAMIN 500 MCG TABLET PO SCH (08:11)
[2021-07-28] MEDS: ASCORBIC ACID 500 MG TABLET PO SCH (08:11)
[2021-07-28] MEDS: CARBAMIDE PEROXIDE 6.5% 15 ML OTIC SOLUTION AU SCH (08:12)
[2021-07-28] MEDS: RIVAROXABAN 20 MG TABLET PO SCH (16:20)
[2021-07-28] MEDS ORDERED: HALOPERIDOL LACTATE 5 MG/ML VIAL IM ONE (18:00)
[2021-07-28] MEDS ORDERED: DiphenhydrAMINE HCL 50 MG/ML VIAL IM ONE (18:00)
[2021-07-28] MEDS ORDERED: LORazepam 2 MG/ML VIAL IM ONE (18:00)
[2021-07-28] MEDS: QUEtiapine FUMARATE 200 MG TABLET PO SCH (21:00)
[2021-07-29] MEDS: CARBAMIDE PEROXIDE 6.5% 15 ML OTIC SOLUTION AU SCH (08:31)
[2021-07-29] MEDS: OMEPRAZOLE 20 MG CAPSULE PO SCH (08:34)
[2021-07-29] MEDS: MULTIVITAMINS WITH MINERALS, THERAPEUTIC TABLET PO SCH (08:34)
[2021-07-29] MEDS: QUEtiapine FUMARATE 25 MG TABLET PO SCH (08:34)
[2021-07-29] MEDS: CYANOCOBALAMIN 500 MCG TABLET PO SCH (08:35)
[2021-07-29] MEDS: ASCORBIC ACID 500 MG TABLET PO SCH (08:35)
[2021-07-29] MEDS ORDERED: CYAN500T9 PO (09:45)
[2021-07-29] MEDS ORDERED: ASCO500 PO (09:45)
[2021-07-29] MEDS ORDERED: QUET200T PO (09:45)
[2021-07-29] MEDS ORDERED: MULT-1239 PO (09:45)
[2021-07-29] MEDS ORDERED: QUET25TA PO (09:45)
[2021-07-29] MEDS ORDERED: OMEP20 PO (09:45)
[2021-07-29] MEDS ORDERED: CARB-188 AU (09:45)
[2021-07-29 10:06] VITALS: BP 136/86
== END 2021-07-29 11:05 | disposition home or self-care (01) | DRG 885 ==
LOC: EMS 14:57 → 3EX 19:56
PROVIDERS: ADMIT Psychiatry & Neurology Child & Adolescent Psychiatry; ATTEND Psychiatry & Neurology Child & Adolescent Psychiatry
DX: F20.0 Paranoid schizophrenia (principal); G93.40 Encephalopathy, unspecified; G40.909 Epilepsy, unspecified, not intractable, without status epilepticus; I50.9 Heart failure, unspecified; J44.9 Chronic obstructive pulmonary disease, unspecified; F41.9 Anxiety disorder, unspecified; F32.A Depression, unspecified; I95.9 Hypotension, unspecified; Z20.822 Contact with and (suspected) exposure to COVID-19; F10.10 Alcohol abuse, uncomplicated; Z78.1 Physical restraint status; Z79.01 Long term (current) use of anticoagulants; Z86.718 Personal history of other venous thrombosis and embolism; Z91.19 Patient's noncompliance with other medical treatment and regimen; Z59.00 Homelessness unspecified; Z79.899 Other long term (current) drug therapy
CPT/HCPCS: 71101; 80048; 80053; 82550; 85025; 85610; 85730; 87081; 93970; 97162; 97165; 99291; G0378; G0480; J1200; J1630; J2060